=== PATIENT | female | born 1955 | race Asian ===

== ENCOUNTER 2016-12-30 10:52 | Outpatient (CLI) | payer OTHER ==
[~2016-12-30 10:52] MED LIST: AMLO2.5T PO; AMOX500T5 PO; BUDE1AER5 INH; CADUET10 MG/10 M OR; CARDIZEM LA360 MG PO; CARV12.5 PO; CARV25TA PO; CELEXA20 MG PO; CLOP75TA2 PO; GLYB5TAB65 PO; HYDR25TA60 PO; INVOKANA100 MG OR; K-TAB10 MEQ PO; LANTUS100 MG/ML SC; LISI20TA24 PO; METF100038 PO; METFTAB PO; METHYLDOPA500 MG PO; MINO10TA PO; MODAFINIL200 MG PO; PRAVACHOL20 MG PO; SPIRONOLACT25 MG PO; VALSARTAN320 MG PO
== END 2016-12-30 12:00 | disposition home or self-care (01) ==
LOC: RAD 10:52
DX: J45.909 Unspecified asthma, uncomplicated (principal)

== ENCOUNTER 2017-06-03 12:59 | Outpatient (CLI) | payer OTHER | END 2017-06-03 19:11 | disposition home or self-care (01) | LOC: RAD 12:59 | DX: Z12.31 Encounter for screening mammogram for malignant neoplasm of breast (principal) ==

== ENCOUNTER 2017-12-19 13:00 | Outpatient (CLI) | payer OTHER | END 2017-12-19 13:11 | disposition short-term general hospital (02) | LOC: AMB 13:00 | DX: S99.812A Other specified injuries of left ankle, initial encounter (principal); W18.39XA Other fall on same level, initial encounter; Y93.89 Activity, other specified; Y92.89 Other specified places as the place of occurrence of the external cause; Y99.8 Other external cause status | CPT/HCPCS: A0425; A0429 ==

== ENCOUNTER 2017-12-19 13:11 | Emergency (ER) | payer OTHER ==
[~2017-12-19] VITALS: Ht 157.5 cm; Wt 99.8 kg
[2017-12-19 13:22] VITALS: TEMP 98.1
[2017-12-19 14:37] VITALS: BP 138/78
== END 2017-12-19 14:39 | disposition home or self-care (01) ==
LOC: ED 13:11
DX: M25.572 Pain in left ankle and joints of left foot (principal); W18.39XA Other fall on same level, initial encounter; Y92.89 Other specified places as the place of occurrence of the external cause
CPT/HCPCS: 96372; 99282; J1885

== ENCOUNTER 2017-12-20 16:12 | Emergency (ER) | payer OTHER ==
[~2017-12-20] VITALS: Ht 157.5 cm; Wt 99.8 kg
[2017-12-20 17:18] LABS: PLATELET COUNT 291 K/uL (152-353)
[2017-12-20 17:27] LABS: POTASSIUM 3.1 mmol/L (3.6-5.2)
[2017-12-20 18:58] VITALS: BP 172/89
== END 2017-12-20 19:15 | disposition home or self-care (01) ==
LOC: ED 16:12
DX: R41.82 Altered mental status, unspecified (principal); Z86.73 Personal history of transient ischemic attack (TIA), and cerebral infarction without residual deficits; W18.39XA Other fall on same level, initial encounter; Y92.89 Other specified places as the place of occurrence of the external cause
CPT/HCPCS: 36415; 80053; 81000; 83605; 85027; 93005; 99284

== ENCOUNTER → 2017-12-20 | Outpatient (CLI) | payer OTHER | END | disposition short-term general hospital (02) | LOC: AMB 15:32 | DX: R53.1 Weakness (principal); R29.810 Facial weakness | CPT/HCPCS: A0425; A0427 ==